=== PATIENT | male | born 1935 | race Caucasian/White ===

== ENCOUNTER → 2025-02-11 13:55 | Outpatient (REF) | payer OTHER, SELFPAY | LOC: RAD 13:55 | PROVIDERS: ATTENDING PHYSICIAN Podiatrist Foot & Ankle Surgery; FAMILY PHYSICIAN Family Medicine | DX: I97.52 Accidental puncture and laceration of a circulatory system organ or structure during other procedure (principal); I73.89 Other specified peripheral vascular diseases | CPT/HCPCS: 93922; 93925 ==

== ENCOUNTER 2025-04-15 09:56 | Day surgery (SDC) | payer OTHER, SELFPAY ==
[2025-04-15 10:14] VITALS: BP 142/55
[2025-04-15 10:17] VITALS: BMI 26.4
[2025-04-15 10:28] LABS: Hematocrit 40.4 % (39.0-52.0); Hemoglobin 13.5 g/dL (13.0-18.0); Mean Corp Hgb Conc. 33.4 g/dL (33.0-37.0); Mean Corpuscular Volume 92.0 fL (80.0-94.0); Platelet Count 161 10^3/uL (130-400); Red Cell Dist. Width 15.4 % (11.5-14.5)
[2025-04-15 10:38] LABS: INR 1.01; PT 13.6 Sec (11.4-14.6)
[2025-04-15 10:39] LABS: APTT 30.7 Sec (23.4-35.0)
[2025-04-15 10:42] VITALS: BP 152/72
[2025-04-15 10:43] LABS: Blood Urea Nitrogen 44 mg/dl (9-20); Calcium 11.1 mg/dl (8.4-10.2); Carbon Dioxide 29 mmol/L (22-30); Chloride 102 mmol/L (98-107); Estimated Creatinine Clearance 29 ml/min; Glucose 116 mg/dl (70-99); Potassium 4.1 mmol/L (3.5-5.1); Sodium 138 mmol/L (135-145); eGFR 44.23
[2025-04-15 10:48] VITALS: BP 155/49
[2025-04-15 11:02] VITALS: BP 142/55
[2025-04-15 12:18] LABS: Magnesium 1.7 mg/dl (1.6-2.3)
[2025-04-15 14:10] VITALS: BP 169/50
--- NOTE | 2025-04-15 14:16 | W.PN.UPDATE ---
Update Note
Progress Note Update
Patient seen and examined
Family at bedside in holding area
Frequent PVCs on the monitor
Now in bigeminy
Several runs of Vtach - 8/9 beats.
Asymptomatic
EKG shows frequent PVCs
Labs reviewed - ok
I spoke with Dr. Ozzy Payne at [facility] [place] (cardiology). Will cancel procedure and have him seen by Dr. Payne for additional testing. Will reschedule LLE angio once this has been completed.
Explained the plan to the patient and his family
[id number]
Vascular Surgery
== END 2025-04-15 14:20 | disposition other institution (70) ==
LOC: CATH 09:56
PROVIDERS: ATTENDING PHYSICIAN Surgery Vascular Surgery; OTHER PHYSICIAN Internal Medicine Cardiovascular Disease; PRIMARYCARE PHYSICIAN Family Medicine
DX: Z53.09 Procedure and treatment not carried out because of other contraindication (principal)
CPT/HCPCS: 93005; 80048; 83735; 85027; 85610; 85730

== ENCOUNTER 2025-05-13 08:18 | Day surgery (SDC) | payer OTHER, SELFPAY ==
[2025-05-13] VITALS (19 sets, daily range): BP systolic 106–179; BP diastolic 46–122; BMI 25.1
[2025-05-13 08:31] LABS: Hematocrit 39.9 % (39.0-52.0); Hemoglobin 13.4 g/dL (13.0-18.0); Mean Corp Hgb Conc. 33.6 g/dL (33.0-37.0); Mean Corpuscular Volume 88.9 fL (80.0-94.0); Platelet Count 169 10^3/uL (130-400); Red Cell Dist. Width 15.2 % (11.5-14.5)
[2025-05-13 08:51] LABS: Blood Urea Nitrogen 54 mg/dl (9-20); Calcium 11.4 mg/dl (8.4-10.2); Carbon Dioxide 30 mmol/L (22-30); Chloride 102 mmol/L (98-107); Estimated Creatinine Clearance 30 ml/min; Glucose 131 mg/dl (70-99); Potassium 4.1 mmol/L (3.5-5.1); Sodium 136 mmol/L (135-145); eGFR 44.23
[2025-05-13 09:09] LABS: INR 1.07; PT 14.0 Sec (11.4-14.6)
[2025-05-13 09:10] LABS: APTT 29.0 Sec (23.4-35.0)
--- NOTE | 2025-05-13 09:33 | W.SUR.PREOP ---
Pre-Operative Surgical Note
-
I have examined this patient prior to the performance of the scheduled procedure.
The patient's condition is unchanged from the time of the current History and
Physical and the patient is able to undergo the scheduled procedure.
[2025-05-13 11:16] LABS: ACT-LR - POC 219 Seconds (116-155)
[2025-05-13] MEDS: PLAVIX 300 MG PO (13:45)
[2025-05-13] MEDS: NSS 1000 IV (14:47)
--- NOTE | 2025-05-13 16:43 | OR.RPT ---
Operative Report
Operative Report
Date of Operation: 05/13/2025
Pre Op Diagnosis:
1. 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
2. Limb threatening ischemia
Post Op Diagnosis:
1. 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
2. Limb threatening ischemia
Procedure:
1. Intravascular lithotripsy to left posterior tibial artery and tibioperoneal trunk using Shockwave Javelin delivered via retrograde pedal access
2. Intravascular lithotripsy to left distal superficial femoral artery and popliteal artery stenosis using Shockwave E8 6 mm x 80 mm
3. Drug-coated balloon angioplasty to left popliteal artery stenosis (5 mm x 60 mm Lutonix)
4. Bioabsorbable drug-eluting scaffold stent placement to left tibioperoneal trunk (3.75 mm x 38 mm Garcia Esprit)
5. Bioabsorbable drug-eluting scaffold stent placement to left proximal posterior tibial artery (3 mm x 38 mm Garcia Esprit)
6. Diagnostic left lower extremity arteriogram
7. Ultrasound-guided percutaneous ANTEGRADE access to the left superficial femoral artery origin
8. Ultrasound-guided percutaneous RETROGRADE PEDAL ACCESS, left posterior tibial artery at the ankle
Surgeon: Paulie Azevedo III, MD
Psych Np: Rachel Mccormick MD PGY-4
Anesthesia: Sedation with local
Fluoroscopy:
69.8 min
119 mGy
16.13 gy.cm2
Complications: None
Estimated Blood Loss: Less than 20 cc
History and Indications for Procedure: 89-year-old male with limb threatening ischemia to his left lower extremity manifested by a nonhealing left foot wound.
Procedure in Detail: Rylan Ibarra was correctly identified and placed supine on the operating table. After adequate induction of anesthesia the bilateral groins were prepped and draped in the usual sterile fashion. A timeout was performed with the
nursing and anesthesia staff confirming the patient's identity as well as the nature and laterality of the procedure.
The left common femoral artery was identified under ultrasound guidance. The artery was patent. The superior and inferior aspects of the femoral head were identified with radiographic guidance and marked at the skin level. The proposed puncture site
was infiltrated with local anesthesia. Under ultrasound guidance we accessed the left superficial femoral artery origin with a micropuncture needle and upsized to a 5 Fr sheath over a Bentson wire.
A diagnostic left lower extremity arteriogram was then performed which demonstrated the following:
LEFT LOWER EXTREMITY:
Superficial femoral artery: Patent. Scattered calcification. Moderate to high-grade stenosis in the distal superficial femoral artery
Popliteal artery: Patent. Moderate stenoses above the knee. High-grade stenoses behind the knee and below the knee.
Anterior tibial artery: Occluded. Dorsalis pedis artery reconstitutes via posterior tibial artery collaterals at the ankle
Tibioperoneal trunk: Occluded
Peroneal artery: Occluded.
Posterior tibial artery: Reconstitutes proximally. Scattered high-grade stenoses identified throughout. Posterior tibial artery continues across the ankle to form plantar branches in the foot. Posterior tibial artery collaterals at the ankle
reconstitute the dorsalis pedis artery.
ENDOVASCULAR INTERVENTION: Systemic heparin was administered. Exchanged out for a 5 Fr 45 cm sheath over a Bentson wire. Selected the popliteal artery under roadmap guidance. The popliteal artery stenoses were crossed with a Quickcross and
Glidewire. Under roadmap guidance and magnification view I attempted to cross the tibioperoneal trunk occlusion but was unsuccessful. I then made the decision to approach this from a retrograde pedal artery access approach.
The left ankle was prepped and draped. Under ultrasound guidance I was able to access the distal posterior tibial artery in a retrograde fashion at the ankle with a micropuncture needle. The micro dilator and sheath were placed and the radial
artery cocktail was administered through the sheath. I then upsized easily to a 5 Peruvian sheath over a Bentson wire. Using a 0.014 Glidewire advantage and a 0.014 Quickcross catheter I easily navigated retrograde to the posterior tibial artery to
the area of occlusion proximally and in the TP trunk. I was able to navigate into the below-knee popliteal artery but continued to enter into a dissection plane and could not advance further beyond the below-knee popliteal artery from a retrograde
approach. Multiple attempts were made from a retrograde pedal access approach to advance more proximally but I was unsuccessful. With the 0.014 set up in the proximal posterior tibial artery I was then able to navigate successfully through the
below-knee popliteal artery and occluded tibioperoneal trunk and proximal posterior tibial artery segment from the antegrade set up with a Quickcross and Glidewire. I then snared the wire from the retrograde pedal access approach and pulled this
out the pedal access sheath thereby establishing through and through wire access.
Due to the heavily calcified nature of the posterior tibial artery and popliteal artery disease and in an effort to successfully cross the lesion, modify the calcium and achieve luminal gain with endovascular intervention I elected to proceed with
intravascular lithotripsy with a Shockwave Javelin catheter. The Javelin catheter was brought into position under radiographic guidance over the 0.014 wire from the retrograde pedal access 5 Peruvian sheath. The Javelin catheter was advanced through
the posterior tibial artery, tibioperoneal trunk and below-knee popliteal artery while simultaneously delivering lithotripsy pulses. 120 pulses were delivered. Subsequent arteriogram demonstrated a nice angiographic result with improved luminal
gain. I then followed this with 3 mm x 220 mm angioplasty balloon. The entire length of disease from the previously occluded tibioperoneal trunk to the sheath access site in the distal posterior tibial artery was treated with a 3 mm balloon. 2
separate inflations were performed to treat the entire length. The balloon was inflated to nominal pressure and held in place for 3 minutes at each segment treated. Subsequent arteriogram demonstrated an excellent technical result with a now
patent tibioperoneal trunk and posterior tibial artery. An area of residual stenosis was identified in the tibioperoneal trunk and a focal dissection was identified in the proximal posterior tibial artery at the previously occluded segment.
I then focused my attention on treating the distal superficial femoral artery and popliteal artery disease. Due to the heavily calcified nature of the distal SFA and popliteal artery disease and in an effort to modify the calcium to achieve maximum
luminal gain with endovascular intervention I elected to proceed with intravascular lithotripsy. A 6 mm x 80 mm E8 shockwave balloon was placed across the popliteal stenosis under roadmap guidance. Alternating rounds of lithotripsy pulse delivery at
sub-nominal pressure and angioplasty at nominal pressure was performed across the stenosis. In between rounds of pulse delivery and angioplasty the balloon was deflated and repositioned under roadmap guidance. The entire length of calcified
stenosis in the popliteal artery and distal superficial femoral artery was treated. All 400 pulses were delivered.
Subsequent arteriogram demonstrated a significantly improved result within a widely patent distal superficial femoral artery and popliteal artery. An area of focal dissection and residual stenosis was identified behind the knee. This was treated
with a 5 mm x 60 mm Lutonix drug-coated angioplasty balloon. The balloon was positioned in the desired location under roadmap guidance, inflated to nominal pressure and held in place for 3 minutes before slowly deflating and removing over the wire.
The previously seen area of abnormality in the tibioperoneal trunk and proximal posterior tibial artery was treated with 2 overlapping Garcia Esprit bioabsorbable drug-eluting scaffolds. The 3 mm x 38 mm scaffold was positioned in the proximal
posterior tibial artery under roadmap guidance and deployed. I then followed this more proximally with a 3.75 x 38 mm scaffold.
COMPLETION ARTERIOGRAM: Excellent technical result. Widely patent superficial femoral artery and popliteal artery with brisk flow and no significant residual stenosis or filling defects. Widely patent posterior tibial artery with brisk flow up to
the sheath access site at the ankle. Clear reconstitution of the dorsalis pedis artery via distal posterior tibial artery collaterals at the ankle.
Satisfied with this result we concluded the procedure. Protamine was administered. The wire was removed. The pedal access sheath was removed and direct manual pressure was held over the access site. There was an easily palpable posterior tibial
artery pulse at the ankle and a good-quality pulsatile Doppler signal was easily audible distal to the access site in the foot. The 5 Peruvian sheath in the left groin was pulled and direct manual pressure was held over the puncture site until
hemostasis was achieved. Sterile dressings were applied to both access sites.
The patient tolerated the procedure well and was taken to the recovery area in stable condition.
Attestation: I was present and responsible for the entire procedure.
Signed:
Paulie Azevedo III, MD
Vascular Surgery
[facility]
== END 2025-05-13 18:16 | disposition home or self-care (01) ==
LOC: CATH 08:18
PROVIDERS: ATTENDING PHYSICIAN Surgery Vascular Surgery; OTHER PHYSICIAN Internal Medicine Cardiovascular Disease; PRIMARYCARE PHYSICIAN Family Medicine
DX: I70.244 Atherosclerosis of native arteries of left leg with ulceration of heel and midfoot (principal); L97.429 Non-pressure chronic ulcer of left heel and midfoot with unspecified severity; I10 Essential (primary) hypertension; E78.00 Pure hypercholesterolemia, unspecified; Z79.82 Long term (current) use of aspirin; Z79.899 Other long term (current) drug therapy; I25.10 Atherosclerotic heart disease of native coronary artery without angina pectoris
CPT/HCPCS: C9773; C9764; 75710; 80048; 85027; 85610; 85730; 93005; C1725; C1769; C1874; C1894; C2623; C9765; Q9967

== ENCOUNTER 2025-05-20 14:42 | Emergency (ER) | payer OTHER, SELFPAY ==
[2025-05-20 14:51] VITALS: BP 143/71
--- NOTE | 2025-05-20 17:05 | ED.GENMED ---
History of Present Illness
General
Chief Complaint: Nose Bleed
Source: patient and family
Exam Limitations: none
Time Seen by Provider: 05/20/25 16:29
History of Present Illness
History of Present Illness:
89-year-old male nosebleed right nares. Started this morning. Started after blowing his nose. Remote history of nosebleeds. Recently started Plavix. No other symptoms
Review of Systems
Review of Systems
All Other Systems: Not applicable
Phy Exam
Physical Exam
Physical Exam:
General: Nontoxic appearing in no distress
Skin: Warm and dry, no rash
Neuro: Alert, nontoxic, grossly nonfocal
Lungs: No distress.
Heart: Regular rate and rhythm
ENT: Currently has a nose pinch in place. Left nares clear. Right nares with bleeding and a clot.
Course
Vital Signs
Initial and Last Documented VS:
Initial Vital Signs
Temp Pulse Resp BP Pulse Ox
97.6 F 93 16 143/71 99
05/20/25 14:51 05/20/25 14:51 05/20/25 14:51 05/20/25 14:51 05/20/25 14:51
Last Documented Vital Signs
Temp Pulse Resp BP Pulse Ox
97.6 F 93 16 143/71 99
05/20/25 14:51 05/20/25 14:51 05/20/25 14:51 05/20/25 14:51 05/20/25 17:07
Procedures
Nosebleed
Drug treatment: Epinephrine
Treatment: Silver nitrate cautery and Merocel packing
Post treatment bleeding: none- good control
*Pulse Oximetry
SaO2: 99
Oxygen Mode of Delivery: Room air
Patient hypoxic: no (99)
*Critical Care Note
Total Time (30-74mins, 75-104mins- exclusive of procedures): Not Applicable
Update Note
Update Note:
Rechecked. No bleeding. Discharged to follow-up
ED Attending Note
-
Portions of this chart may have been created with voice recognition software.� Occasional wrong word or��sound alike� substitutions may have occurred due to the inherent limitations of voice recognition software.
Discharge Plan
Departure
Patient Disposition: Home (Routine Discharge)
Date of Disposition: 05/20/25
Time of Disposition: 17:55
Patient with high blood pressure during this ER visit?: Yes
Discharge Problem:
Anterior epistaxis
Instructions: Nosebleeds (DC), BLOOD PRESSURE
Prescriptions:
No Action
pravastatin 40 mg tablet
40 mg PO DAILY
triamterene-hydrochlorothiazid 37.5-25 mg tablet
1 tab PO DAILY
allopurinol 300 mg tablet
300 mg PO DAILY
furosemide 20 mg tablet
20 mg PO DAILY
latanoprost 0.005 % Drops
1 drp OPHTHALMIC (EYE) QPM
aspirin 81 mg Tablet
81 mg PO DAILY
saw palmetto 450 mg Capsule
450 mg PO DAILY
omega [id number]-fish oil [Fish Oil] 1,200 (144-216) mg Capsule
1 cap PO DAILY
clopidogrel 75 mg Tablet
75 mg PO DAILY Qty: 90 0RF
Referrals:
Neil Alfaro MD [Active, Otology] - Follow up in 2-3 days
Ozzy Rivers DO [Family Provider, Family Practice]
Activity Restrictions/Additional Instructions:
Packing removal in 3 to 4 days
Interventions
Interventions:
*Risk Screen - Suicide Last Done: 05/20/25 14:51
*General Assessment Last Done: 05/20/25 14:51
*Neglect/Abuse Screening Last Done: 05/20/25 14:51
*ED COVID-19 Vaccine History Last Done: 05/20/25 14:51
*ED Influenza Vaccine History Last Done: 05/20/25 14:51
[facility] Fall Risk Assessment Tool Last Done: 05/20/25 18:02
*Nursing Disposition Last Done: 05/20/25 18:02
ED-EENT Assessment Last Done: 05/20/25 18:02
Discharge Date and Time
Discharge Date/Time: 05/20/25 18:03
Print Language: FRENCH
== END 2025-05-20 18:03 | disposition home or self-care (01) ==
LOC: EMR 14:42
PROVIDERS: EMERGENCY PHYSICIAN Emergency Medicine; FAMILY PHYSICIAN Family Medicine
DX: R04.0 Epistaxis (principal)
CPT/HCPCS: 99282; 30901